=== PATIENT | male | born 1940 | race Caucasian/White ===

== ENCOUNTER → 2016-06-23 | Outpatient (CLI) | payer MEDICARE, BC ==
[~2016-06-23] MED LIST: ASPIRIN PO; BENICAR HCT 40-1 TA1 PO; CENTRUM SILVER PO; CENTRUM SILVER1 EAC2 PO; CRESTOR PO; FENOFIBRATE160 MG PO; FISH OIL 1,0001 CAP PO; FISH OIL 1,4001 EACH PO; GLIPIZIDE10 MG PO; LORTAB 10-5001 EACH PO; LOSARTAN-HCTZ1 EAC1 PO; MEDROL4 MG/DOSE- PO; METFORMIN PO; NORVASC PO; OMEPRAZOLE20 M2 PO; TRICOR PO; VITAMIN D; VITAMIN D2000 UNI1 PO; VITAMIN D33000 UNIT PO
--- NOTE | ~2016-06-23 | US37 ---
[facility] A Service of [facility] & [facility] RADIOLOGY TEXT RESULTS PATIENT: EDUARDO LADD LOCATION: [facility] : 38 UNIT #: [id number] AGE: [address]: KAITY SOLORZANO MD SEX: M ORDER DR: [id number] [facility] [address] [place], [place] [address] [id number] O MR#: [id number] Acc #: [id number] NAME: EDUARDO LADD : 1940 SEX: M STUDY DATE/TIME: 06/23/2016 13:41 UNIT: [facility] ROOM: STUDY DESCRIPTION: US Carotid W/Doppler Bilateral Attending Physician: Kaity Solorzano M.D. Referring Physician: Kaity Solorzano M.D. Ordering Physician: Kaity Solorzano M.D. Primary Care Physician: Kaity Solorzano M.D. MEDICAL IMAGING REPORT This report is preliminary unless electronic signature is present EXAM Bilateral carotid duplex, 06/23/2016 HISTORY Syncope FINDINGS Duplex imaging of the carotid arteries was performed. Right common carotid artery is patent. Mild focal plaque is seen in the right internal carotid artery at the origin. Velocity in the right common carotid is 59, internal is 54 and external is 63. Right ICA/CCA ratio is 0.9. On the left side, the common, internal and external carotid arteries are patent with no significant plaque. Velocity in the left common carotid is 53, internal is 93 and external is 55 cm/sec. Left ICA/CCA ratio is 1.0. Antegrade flow is seen in the right and left vertebral arteries. IMPRESSION 1. Minimal focal plaque is seen in the right internal carotid artery. No significant stenosis is seen in the right side. 2. Normal left internal carotid artery exam. 3. Antegrade flow is seen in the right and left vertebral arteries. Dictated by... Juan Luis Mistry M.D. THIS IS AN ELECTRONICALLY VERIFIED REPORT Juan Luis Mistry M.D. at 06/24/2016 5:12 PM Milana TD: 06/24/2016 08:10 [facility] A Service of [facility] & [facility] RADIOLOGY TEXT RESULTS PATIENT: EDUARDO LADD LOCATION: [facility] #: [id number] : 38 UNIT #: [id number] AGE: [address]: KAITY SOLORZANO MD SEX: M ORDER DR: JOB #: [id number] MEDICAL IMAGING REPORT Page 1 of 1 COPY
== END | disposition home or self-care (01) ==
LOC: CECH 12:38
DX: R55 Syncope and collapse (principal); I65.21 Occlusion and stenosis of right carotid artery; I51.7 Cardiomegaly
CPT/HCPCS: 93306; 93880